=== PATIENT | male | born 1970 | race Caucasian/White ===

== ENCOUNTER 2018-11-16 19:20 | Emergency (ER) | payer BC ==
[2018-11-16] MEDS ORDERED: Adacel (T-DAP) 0.5 ML SYRINGE ONE (19:45)
[2018-11-16] MEDS ORDERED: Bacitracin 1 PK ONE (19:50)
== END 2018-11-16 20:05 | disposition home or self-care (01) ==
LOC: BURERS 19:20
DX: S81.812A Laceration without foreign body, left lower leg, initial encounter (principal); W26.8XXA Contact with other sharp object(s), not elsewhere classified, initial encounter
CPT/HCPCS: 12002; 90471; 90715